=== PATIENT | male | born 1995 | race Two or more races ===

== ENCOUNTER 2022-06-05 13:44 | Emergency (ER) | payer SELFPAY ==
[~2022-06-05] VITALS: Ht 170.2 cm; Wt 81.8 kg
[2022-06-05 13:57] VITALS: BP 123/82
[2022-06-05] MEDS ORDERED: NAPR-56 PO (14:35)
[2022-06-05] MEDS ORDERED: CEPH250T PO (14:35)
== END 2022-06-05 14:43 | disposition home or self-care (01) ==
LOC: ER 13:45
DX: K08.89 Other specified disorders of teeth and supporting structures (principal); Z79.2 Long term (current) use of antibiotics; Z79.899 Other long term (current) drug therapy
CPT/HCPCS: 99283